=== PATIENT | female | born 1995 | race Caucasian/White ===

== ENCOUNTER 2017-04-08 21:01 | Emergency (ER) | payer OTHER ==
[~2017-04-08] VITALS: Ht 157.5 cm; Wt 46.6 kg
[~2017-04-08 21:01] MED LIST: DOCUSATE SODIU100 MG PO; ENDOCET 5-3251 EACH PO; IBUPROFEN800 MG PO; KEFLEX500 MG PO; PRENATAL TABLE1 EAC3 PO
[2017-04-09 00:59] VITALS: BP 134/90
== END 2017-04-09 00:59 | disposition home or self-care (01) ==
LOC: EME 21:01
DX: G43.909 Migraine, unspecified, not intractable, without status migrainosus (principal); Z87.891 Personal history of nicotine dependence
CPT/HCPCS: 99281; 99285; J1200; J1885; J2765

== ENCOUNTER 2017-06-30 01:03 | Observation (INO) | payer OTHER ==
[~2017-06-30] VITALS: Ht 157.5 cm; Wt 50.7 kg
[2017-06-30 02:10] LABS: HEMATOCRIT 40.4 % (36.0-46.0); MCH 31.1 PG (29.0-34.0); MCHC 35.6 G/DL (30.0-36.0); MCV 87.3 FL (83-99); MEAN PLAT.VOLUME 9.6 uM^3 (9.5-12.4); PLATELET COUNT 159 K/uL (156-360); RBC DIS.WIDTH-SD 38.6 % (39-53); RED BLOOD COUNT 4.63 M/uL (3.80-5.20); WHITE BLOOD COUNT 7.7 K/uL (4.1-10.2)
[2017-06-30 02:22] LABS: CHLORIDE 109 mEq/L (99-109); POTASSIUM 3.3 mEq/L (3.7-5.4); SODIUM 139 mEq/L (136-147)
[2017-06-30 02:24] LABS: GLUCOSE 149 mg/dL (70-99)
[2017-06-30 02:26] LABS: ANION GAP 9 MEQ/L (2-14); TOTAL BILIRUBIN 0.5 mg/dL (0.0-1.0)
[2017-06-30 02:27] LABS: SERUM ETHYL ALCOHOL < 10 mg/dL
[2017-06-30 02:28] LABS: GFR ESTIMATE (CALCULATED) > 59 mL/min/
[2017-06-30 02:29] LABS: ALKALINE PHOSPHATASE 64 IU/L (3-129)
[2017-06-30 02:30] LABS: UREA NITROGEN (BUN) 8 mg/dL (9-23)
[2017-06-30 02:31] LABS: SALICYLATE < 5.0 MG/DL (15-30)
[2017-06-30 02:33] LABS: LIPASE 6 U/L (1.0-51.0)
[2017-06-30 02:39] LABS: QUANTITATIVE HCG < 4.0 MIU/ML
[2017-06-30 04:58] LABS: AMPHETAMINE NEGATIVE (500 ng/mL); BARBITURATES NEGATIVE (200 ng/mL); BENZODIAZEPINES NEGATIVE (150 ng/mL); COCAINE NEGATIVE (150 ng/mL); INTERNAL CONTROLS VALID? YES; METHADONE NEGATIVE (200 ng/mL); METHAMPHETAMINE NEGATIVE (500 ng/mL); OPIATES (MORPHINE) NEGATIVE (100 ng/mL); OXYCODONE NEGATIVE (100 ng/mL); PHENCYCLIDINE NEGATIVE (25 ng/mL); PROPOXYPHENE NEGATIVE (300 ng/mL); THC CANNABINOIDS NEGATIVE (50 ng/mL); TRICYCLIC ANTIDEPRESSANTS PRESUMPTIVE POSITIVE (300 ng/mL)
[2017-06-30 10:40] LABS: TROP-I INTERPRETATION NEGATIVE; TROPONIN-I < 0.01 ng/mL (0.0-0.30)
[2017-06-30 15:59] VITALS: BP 123/75
[2017-06-30 16:31] LABS: TROP-I INTERPRETATION NEGATIVE; TROPONIN-I < 0.01 ng/mL (0.0-0.30)
[2017-06-30 19:24] VITALS: BP 117/65
[2017-06-30 22:55] LABS: TROP-I INTERPRETATION NEGATIVE; TROPONIN-I < 0.01 ng/mL (0.0-0.30)
[2017-06-30 23:47] VITALS: BP 119/69
[2017-07-01 08:30] VITALS: BP 115/70
[2017-07-01 09:00] LABS: ANION GAP 5 MEQ/L (2-14); CHLORIDE 112 MEQ/L (99-109); GFR ESTIMATE (CALCULATED) > 59 mL/min/; POTASSIUM 3.6 MEQ/L (3.7-5.4); SAMPLE HEMOLYSIS CHECK 0; SAMPLE ICTERIC CHECK 0; SAMPLE LIPEMIA CHECK 0; SODIUM 141 MEQ/L (136-147); UREA NITROGEN (BUN) 8 mg/dL (9-23)
[2017-07-01 09:02] LABS: GLUCOSE 81 mg/dL (70-99)
[2017-07-01 09:04] LABS: HEMATOCRIT 35.4 % (36.0-46.0); MCH 31.8 PG (29.0-34.0); MCV 90.8 FL (83-99); RBC DIS.WIDTH-CV 12.5 % (11.8-14.6); RBC DIS.WIDTH-SD 41.1 % (39-53)
[2017-07-01 09:16] LABS: MEAN PLAT.VOLUME 9.7 uM^3 (9.5-12.4); PLAT.SUFFICIENCY DECREASED
[2017-07-01 09:19] LABS: PLATELET COUNT 101 K/uL (156-360)
[2017-07-01 11:17] VITALS: BP 117/72
[2017-07-01 15:54] VITALS: BP 121/80
[2017-07-02] MEDS ORDERED: TRAZODONE HCL50 MG PO (09:27)
== END 2017-07-01 17:30 ==
LOC: EME 01:03 → 5WEST 09:45 → EDOF 09:45 → ENRESERV 09:46 → 5WEST 15:46
PROVIDERS: Emergency Medicine; Internal Medicine; Nurse Practitioner Adult Health
DX: T43.012A Poisoning by tricyclic antidepressants, intentional self-harm, initial encounter (principal); R45.851 Suicidal ideations; R00.0 Tachycardia, unspecified; E87.6 Hypokalemia; F43.20 Adjustment disorder, unspecified; F17.210 Nicotine dependence, cigarettes, uncomplicated; G43.909 Migraine, unspecified, not intractable, without status migrainosus
CPT/HCPCS: 71010; 80048; 80053; 83690; 84484; 84702; 85027; 93005; G0378; G0480; J2310; J7030; S0028

== ENCOUNTER 2017-07-01 15:54 | Inpatient (IN) | payer OTHER ==
[~2017-07-01] VITALS: Ht 157.5 cm; Wt 50.7 kg
[2017-07-01 17:37] VITALS: BP 128/81
[2017-07-02 07:53] VITALS: BP 109/64
[2017-07-02] MEDS ORDERED: TRAZODONE HCL50 MG PO (09:27)
== END 2017-07-02 11:19 | disposition home or self-care (01) | DRG 882 ==
LOC: 1WEST 15:54 → ENRESERV 16:09 → 1WEST 17:30
DX: F43.25 Adjustment disorder with mixed disturbance of emotions and conduct (principal); F41.1 Generalized anxiety disorder; F17.210 Nicotine dependence, cigarettes, uncomplicated; G43.909 Migraine, unspecified, not intractable, without status migrainosus; G47.00 Insomnia, unspecified; Z23 Encounter for immunization
CPT/HCPCS: 90686; 97150 GO; 97165 GO; 99202